=== PATIENT | male | born 1950 | race African-American/Black ===

== ENCOUNTER → 2022-04-30 09:48 | Outpatient (BNVA) | payer OTHER, SELFPAY | PROVIDERS: PCP Internal Medicine; Visit Provider Urology | DX: N40.1 Benign prostatic hyperplasia with lower urinary tract symptoms (principal); Z79.899 Other long term (current) drug therapy | CPT/HCPCS: 99202 ==

== ENCOUNTER 2023-05-06 10:48 | Outpatient (REF) | payer OTHER, SELFPAY ==
[2023-05-06 12:13] LABS: PSA,Total (Free>4and<10) 3.65 ng/mL (0.00-4.00)
== END 2023-05-06 10:49 | disposition home or self-care (01) ==
LOC: HO.LAB 10:48
PROVIDERS: PCP Internal Medicine; Visit Provider Urology
DX: N40.1 Benign prostatic hyperplasia with lower urinary tract symptoms (principal); Z12.5 Encounter for screening for malignant neoplasm of prostate
CPT/HCPCS: 36415; 84153

== ENCOUNTER 2023-10-08 14:04 | Outpatient (AMB) | payer OTHER, SELFPAY ==
--- NOTE | 2023-10-08 14:07 | A.OFFVIS_ITS ---
Intake Intake Visit Reasons: PSA Follow Up(set) Intake Note: Patient presents today for a follow-up on: PSA Meds- Finasteride, Terazosin Allergies to Antibiotic- No Known Allergies Blood Thinner- Warfarin Post Void Residual: 15 Ct Manager Required: No Accompanied by: Self / Same As Patient Allergies No Known Allergies Allergy (Verified 10/08/23 14:19) HPI HPI Comments History of Present Illness Details Fer is a very pleasant [place] male. He is a patient of Dr. Del Rosario. He is seen for the following urologic conditions - lower urinary tract symptoms PVR 15 cc PSA control Known large prostate Repeat PSA in 6 months Continue current medications Lower urinary tract symptoms Longstanding treatment Current medications include finasteride and terazosin PSA 07/05 6.4, 05/07 3.6 Prior prostate biopsy 2017 NAD Investigations - 11/03 MRI reported as 2 lesions PI-RADS 4 each less than 10 mm. Total size 160 cc Will continue with current medications and repeat PSA on interval basis Given prostate size PSA is within an acceptable range [facility] Medical History (Updated 10/08/23 @ 14:25 by Wesley Viramontes MD) Benign prostatic hyperplasia with lower urinary tract symptoms Elevated PSA Frequent urination Review of Systems Const Denies chills and Denies fever(s) Card Reports no additional complaints and Denies syncope Resp Denies cough GI Denies abdominal pain and Denies heartburn Reports as per HPI and Denies change in libido Neuro Denies syncope Psych Denies change in libido Endo Denies change in libido Physical Exam Const General: cooperative, healthy appearing, comfortable and no acute distress Orientation/consciousness: patient oriented x3 HEENT Face and sinus: Yes normal facial exam Mouth: moist mucous membranes Neck Neck: Yes normal visual inspection, Yes full ROM and Yes trachea midline Chest Chest palpation & inspection: normal inspection of the chest Resp Effort & Inspection: normal respiratory effort, able to speak in complete sentences and no respiratory distress GI Inspection: Yes normal to inspection Back/Spine/Pelvis Cervical Spine: normal cervical lordosis Thoracic/Lumbar Spine: thoracic and lumbar spine normal to inspection Skin General skin exam: no rashes or lesions noted Neuro General: patient oriented x3, gait normal, tone normal and moves all extremities Extrem General: Yes normal to inspection and Yes capillary refill normal Office Procedures Post Void Residual Post Residual Void Post Void Residual (PVR): 15 [id number] Void Residual by ultrasound Assessment & Plan Assessment & Plan (1) Elevated PSA: Code(s): R97.20 - Elevated prostate specific antigen [PSA] (2) Benign prostatic hyperplasia with lower urinary tract symptoms: Code(s): N40.1 - Benign prostatic hyperplasia with lower urinary tract symptoms Plan Six month follow-up PSA Orders: Orders PSA,Total (Free>4and<10) 6 Months R97.20 - Elevated prostate specific antigen [PSA] AMB Post Void Residual by ultrasound Today N40.1 - Benign prostatic hyperplasia with lower urinary tract symptoms, R33.9 - Retention of urine, unspecified Patient Instructions: Imaging studies, laboratory and physical exam results were discussed and reviewed in detail. No major barriers to patient understanding were identified. An opportunity to ask questions regarding the treatment plan was provided. All questions were answered. The patient expressed understanding and agreement with the above treatment plan. The patient is aware they should contact our office by phone for worsening of their current condition or the appearance of new urologic symptoms. Compliance is encouraged with any medications and followup testing that is ordered. It is a privilege to participate in the urologic care of your patient. If you have any questions or concerns regarding treatment for the above conditions, or other urologic issues, please do not hesitate to contact me. The office telephone contact is [phone]. This note is constructed using voice recognition software. While every effort has been made to ensure accuracy truck rental manager errors may have been included. Yours sincerely, Dr Wesley Viramontes MD, [facility] - Urology Providers of Expert, Compassionate Care for the Genitourinary System Coding Level of Care Code Est Pt Level 4 (04490) Diagnoses Elevated PSA R97.20 Benign prostatic hyperplasia with lower urinary tract symptoms N40.1 CPT Codes Post Residual Void - PVR CPT Code: 16598-Obut Void Residual by ultrasound ([id number])
== END 2023-10-08 14:26 | disposition home or self-care (01) ==
PROVIDERS: PCP Internal Medicine; Visit Provider Urology
DX: R97.20 Elevated prostate specific antigen [PSA] (principal); N40.1 Benign prostatic hyperplasia with lower urinary tract symptoms
CPT/HCPCS: 99213

== ENCOUNTER → 2023-10-08 14:04 | Outpatient (BNVA) | payer OTHER, SELFPAY | PROVIDERS: PCP Internal Medicine; Visit Provider Urology | DX: R97.20 Elevated prostate specific antigen [PSA] (principal); N40.1 Benign prostatic hyperplasia with lower urinary tract symptoms; Z79.01 Long term (current) use of anticoagulants | CPT/HCPCS: 51798; 99212 ==

== ENCOUNTER 2024-04-07 14:36 | Outpatient (AMB) | payer OTHER, SELFPAY ==
--- NOTE | 2024-04-07 14:40 | MHC.OFFVIS ---
Intake Visit Reasons: 6m/PSA/PVR(set) Intake Note: Patient presents today for 6m follow-up/PSA/PVR Meds- Finasteride, Terazosin Allergies to Antibiotic- No Known Allergies Blood Thinner- Warfarin Post Void Residual: 15ML'S TODAY'S PVR:0ML'S Manufacturing Assistant Required: No Accompanied by: Self / Same As Patient Allergies No Known Allergies Allergy (Verified 04/07/24 14:41) HPI Comments Details: Fer is a very pleasant [place] male. He is a patient of Dr. Del Rosario. He is seen for the following urologic conditions - lower urinary tract symptoms PVR 15 cc Remains on finasteride and terazosin. PSA 4.9 Lower urinary tract symptoms Longstanding treatment Current medications include finasteride and terazosin PSA 07/05 6.4, 05/07 3.6, 04/07 4.9 25% Prior prostate biopsy 2017 [facility] Investigations - 11/03 MRI reported as 2 lesions PI-RADS 4 each less than 10 mm. Total size 160 cc Will continue with current medications and repeat PSA on interval basis Given prostate size PSA is within an acceptable range [facility] Medical History (Updated 10/08/23 @ 14:25 by Wesley Viramontes MD) Benign prostatic hyperplasia with lower urinary tract symptoms Elevated PSA Frequent urination Review of Systems Const Denies chills and Denies fever(s) Card Reports no additional complaints and Denies syncope Resp Denies cough GI Denies abdominal pain and Denies heartburn Reports as per HPI and Denies change in libido Neuro Denies syncope Psych Denies change in libido Endo Denies change in libido Physical Exam Const General: cooperative, healthy appearing, comfortable and no acute distress Orientation/consciousness: patient oriented x3 HEENT Face and sinus: Yes normal facial exam Mouth: moist mucous membranes Neck Neck: Yes normal visual inspection, Yes full ROM and Yes trachea midline Chest Chest palpation & inspection: normal inspection of the chest Resp Effort & Inspection: normal respiratory effort, able to speak in complete sentences and no respiratory distress GI Inspection: Yes normal to inspection Back/Spine/Pelvis Cervical Spine: normal cervical lordosis Thoracic/Lumbar Spine: thoracic and lumbar spine normal to inspection Skin General skin exam: no rashes or lesions noted Neuro General: patient oriented x3, gait normal, tone normal and moves all extremities Extrem General: Yes normal to inspection and Yes capillary refill normal Office Procedures Post Void Residual Post Residual Void Post Void Residual (PVR): 0 [id number]-[id number] Void Residual by ultrasound Results AMB Urinalysis, Automated UA Leukoctes 0 Debbie/uL Last Edit by TOREY Ortega on 04/07/24 14:59 UA Nitrite Negative Last Edit by TOREY Orteag on 04/07/24 14:59 UA Urobilinogen 0.2 mg/dL Last Edit by TOREY Ortega on 04/07/24 14:59 UA Protein 15 mg/dL Last Edit by Alan Morin CCM on 04/07/24 14:59 UA pH 6.0 Last Edit by Alan Morin [facility] on 04/07/24 14:59 UA Blood 0 Roberto/uL Last Edit by TOREY Ortega on 04/07/24 14:59 UA Specific Deale 1.020 Last Edit by TOREY Ortega on 04/07/24 14:59 UA Ketone Negative Last Edit by TOREY Ortega on 04/07/24 14:59 UA Bilirubin 0 mg/dL Last Edit by Alan Morin CCM on 04/07/24 14:59 UA Glucose 250 mg/dL [facility] 04/07/[facility] 14:59 Results Reviewed Results Reviewed: Laboratory Last Values Urine pH (Auto) 6.0 04/07/24 14:59 Specific Deale (Auto) 1.020 04/07/24 14:59 Urine Protein (Auto) 15 mg/dL 04/07/24 14:59 Glucose (UA)(Auto) 250 mg/dL 04/07/24 14:59 Urine Ketones (Auto) Negative 04/07/24 14:59 Urine Blood (Auto) 0 Roberto/uL 04/07/24 14:59 Urine Nitrite (Auto) Negative 04/07/24 14:59 Urine Bilirubin (Auto) 0 mg/dL 04/07/24 14:59 Urine Urobilinogen (Auto) 0.2 mg/dL 04/07/24 14:59 Leukocyte Esterase (Auto) 0 Debbie/uL 04/07/24 14:59 Assessment & Plan Assessment & Plan (1) Elevated PSA: Code(s): R97.20 - Elevated prostate specific antigen [PSA] Category: Medical (2) Benign prostatic hyperplasia with lower urinary tract symptoms: Code(s): N40.1 - Benign prostatic hyperplasia with lower urinary tract symptoms Category: Medical Plan PSA stable Continue 6 month review Orders: Orders AMB Urinalysis Automated 04/07/24 Z13.9 - Encounter for screening, unspecified PSA,Total (Free>4and<10) 6 Months R97.20 - Elevated prostate specific antigen [PSA] Patient Instructions: Imaging studies, laboratory and physical exam results were discussed and reviewed in detail. No major barriers to patient understanding were identified. An opportunity to ask questions regarding the treatment plan was provided. All questions were answered. The patient expressed understanding and agreement with the above treatment plan. The patient is aware they should contact our office by phone for worsening of their current condition or the appearance of new urologic symptoms. Compliance is encouraged with any medications and followup testing that is ordered. It is a privilege to participate in the urologic care of your patient. If you have any questions or concerns regarding treatment for the above conditions, or other urologic issues, please do not hesitate to contact me. The office telephone contact is [phone]. This note is constructed using voice recognition software. While every effort has been made to ensure accuracy senior tech manufacturing engineering errors may have been included. Yours sincerely, Dr Wesley Viramontes MD, [facility] - Urology Providers of Expert, Compassionate Care for the Genitourinary System Coding Level of Care Code Est Pt Level 3 (88298) Diagnoses Elevated PSA R97.20 Benign prostatic hyperplasia with lower urinary tract symptoms N40.1 CPT Codes Post Residual Void - PVR CPT Code: 33122-Zder Void Residual by ultrasound ([id number])
== END 2024-04-07 15:13 | disposition home or self-care (01) ==
LOC: HO.HUSH 14:36
PROVIDERS: PCP Internal Medicine; Visit Provider Urology
DX: R97.20 Elevated prostate specific antigen [PSA] (principal); N40.1 Benign prostatic hyperplasia with lower urinary tract symptoms
CPT/HCPCS: 99213

== ENCOUNTER → 2024-04-07 14:36 | Outpatient (BNVA) | payer OTHER, SELFPAY | PROVIDERS: PCP Internal Medicine; Visit Provider Urology | DX: N40.1 Benign prostatic hyperplasia with lower urinary tract symptoms (principal); R97.20 Elevated prostate specific antigen [PSA] | CPT/HCPCS: 51798; 81003; 99212 ==

== ENCOUNTER 2024-10-08 13:04 | Outpatient (AMB) | payer MEDICARE, SELFPAY ==
--- NOTE | 2024-10-08 13:04 | A.OFFVIS_ITS ---
Intake Visit Reasons: 6m/PSA(set)Elevated Intake Note: Patient is present for 6M/PSA ELEVATED Urology Medication:TERAZOSIN,FINASTERIDE Antibiotic Allergy:NONE Blood Thinner:NONE Crm Campaign Manager Required: No Allergies No Known Allergies Allergy (Verified 10/08/24 13:05) HPI Comments Details: Fer is a very pleasant [place] male. He is a patient of Dr. Del Rosario. He is seen for the following urologic conditions - lower urinary tract symptoms Telemedicine Evaluation 15 min [facility]ation [facility] Video Remains on finasteride and terazosin. PSA stable Continue to follow every six-month Lower urinary tract symptoms Longstanding treatment Current medications include finasteride and terazosin PSA 07/05 6.4, 05/07 3.6, 04/07 4.9 25%, 10/09 4.7 Prior prostate biopsy 2016 [facility] Investigations - 11/03 MRI reported as 2 lesions PI-RADS 4 each less than 10 mm. Total size 160 cc Will continue with current medications and repeat PSA on interval basis Given prostate size PSA is within an acceptable range [facility] Medical History (Updated 10/08/23 @ 14:25 by Wesley Viramontes MD) Benign prostatic hyperplasia with lower urinary tract symptoms Elevated PSA Frequent urination Review of Systems Const All systems reviewed & are unremarkable except as noted in HPI and below Reports no additional complaints Resp Reports no additional complaints GI Reports no additional complaints Reports as per HPI Musc Reports no additional complaints Physical Exam Telemedicine evaluation Appropriate responses Regular breathing rate and rhythm HEENT Head: Yes normal to inspection Ears: hearing grossly normal bilaterally Eyes General: appearance normal, both eyes and all related structures Neck Neck: Yes normal visual inspection Chest Chest palpation & inspection: normal inspection of the chest Resp Effort & Inspection: normal respiratory effort and able to speak in complete sentences Telehealth Telehealth Telehealth Platform: Dandelion Location of provider rendering services: practice address Location of patient: address on file Patient Identification confirmed using: Name, : Yes Telehealth method: voice only Patient verbally consented to treatment: Yes Patient verbally consented to billing insurance company: Yes Patient informed of any privacy concerns related to visit: Yes Minutes spent on Phone/Video with Pt.: 15 Assessment & Plan Assessment & Plan (1) Elevated PSA: Code(s): R97.20 - Elevated prostate specific antigen [PSA] Category: Medical (2) Benign prostatic hyperplasia with lower urinary tract symptoms: Code(s): N40.1 - Benign prostatic hyperplasia with lower urinary tract symptoms Category: Medical Plan Six-month follow-up PSA Orders: Orders PSA,Total (Free>4and<10) 6 Months R97.20 - Elevated prostate specific antigen [PSA] Patient Instructions: Imaging studies, laboratory and physical exam results were discussed and reviewed in detail. No major barriers to patient understanding were identified. An opportunity to ask questions regarding the treatment plan was provided. All questions were answered. The patient expressed understanding and agreement with the above treatment plan. The patient is aware they should contact our office by phone for worsening of their current condition or the appearance of new urologic symptoms. Compliance is encouraged with any medications and followup testing that is ordered. It is a privilege to participate in the urologic care of your patient. If you have any questions or concerns regarding treatment for the above conditions, or other urologic issues, please do not hesitate to contact me. The office telephone contact is [phone]. This note is constructed using voice recognition software. While every effort has been made to ensure accuracy millinery salesperson errors may have been included. Yours sincerely, Dr Wesley Viramontes MD, [facility] - Urology Providers of Expert, Compassionate Care for the Genitourinary System Coding Level of Care Code Tele Est Pt Level 3 (42438) Diagnoses Elevated PSA R97.20 Benign prostatic hyperplasia with lower urinary tract symptoms N40.1
--- OUTSIDE RECORDS SUMMARY | 2024-10-08 14:52 | XMS_ITS | Continuity of Care Document ---
Author Organization [facility] Address [address] [place] [address]- Care Team Providers Care Animal Assistant Name Role Phone Miguel Ángel SY, Vikram Primary Care Physician Encounter [facility] Date(s): 08/24/24 - 09/23/24 [facility] [address] [place], [place] [address] Encounter Type: Triage Allergies, Adverse Reactions, Alerts Substance Criticality Severity Reaction Reaction Severity Status Jardiance Polyuria Active Immunizations Given and Recorded Vaccine Date Status Refusal Reason influenza virus vaccine, inactivated 06/04/24 Rony rded influenza virus vaccine, inactivated 1 08/22/23 Re corded influenza virus vaccine, inactivated 08/14/22 Give n influenza virus vaccine, inactivated 2 07/12/21 Gi zafar influenza virus vaccine, inactivated 3 07/20/20 Gi zafar influenza virus vaccine, inactivated 4 07/01/19 Re corded influenza virus vaccine, inactivated 5 07/09/18 Re corded influenza virus vaccine, inactivated 6 07/09/18 Re corded influenza virus vaccine, inactivated 7 08/04/17 Gi zafar influenza virus vaccine, inactivated 8 07/15/16 Gi zafar influenza virus vaccine, inactivated 09/04/15 Give n influenza virus vaccine, inactivated 9 08/29/14 Gi zafar influenza virus vaccine, inactivated 10 05/24/13 G iven influenza virus vaccine, inactivated 11 08/18/12 G iven influenza virus vaccine, inactivated 12 11/14/11 G iven influenza virus vaccine, inactivated 11/12/10 G iven influenza virus vaccine, inactivated 08/13/10 G iven influenza virus vaccine, inactivated 07/04/09 Give n zoster vaccine, inactivated 03/24/24 Recorded zoster vaccine, inactivated 05/28/23 Recorded pneumococcal 20-valent conjugate vaccine 15 09/05/23 Given [id number] 12y+ bivalent booster vax 08/14/22 Given SARS-CoV-2 (COVID-19) mRNA BNT-162b2 vac 09/24/21 Recorded SARS-CoV-2 (COVID-19) mRNA BNT-162b2 vac 03/28/21 Recorded SARS-CoV-2 (COVID-19) mRNA BNT-162b2 vac 03/07/21 Recorded tetanus-diphtheria toxoids (Td) 05/09/20 Given tetanus-diphtheria toxoids (Td) 16 07/25/03 Given pneumococcal 23-valent vaccine 17 08/04/17 Given pneumococcal 13-valent vaccine 18 07/15/16 Given Zoster Vaccine Live 11/05/14 Recorded tetanus/diphtheria/pertussis, acel(Tdap) 19 01/24/14 Given Hepatitis B Vaccine (old term) 06/06/11 Given Influenza Virus Vaccine (oldterm) 20 07/05/08 Give n Influenza Virus Vaccine (oldterm) 21 07/20/07 Give n Influenza Virus Vaccine (oldterm) 22 08/14/06 Give n Pneumococcal Poly (PPV23) (oldterm) 07/25/03 Given [facility] 2Result Comment: [id number] given w/out incident 3Result Comment: [id number] given w/out incident 4Result Comment: Given at [facility] [place], [place] 5Result Comment: [07/13/2018] [facility] [address] [facility] 6Result Comment: [07/13/2018] [facility] [address] [facility] 7Result Comment: [08/04/2017] [id number] 8Result Comment: [07/15/2016] pt. tolerated inj. without complications...CO 9Result Comment: [08/29/2014] GIVEN W/O INCIDENT...AD 10Result Comment: [05/24/2013] given w/o incident...AA 11Admin Note: given w/ o incident 12Admin Note: given w/ o incident 13Admin Note: given w/o incident; pt states did not receive inj on 08/13/10. 14Admin Note: MANUFACTURE BIOMEDICAL INFO SHEET GIVEN GIVEN W/O INCIDENT 15Result Comment: [facility]- [id number] 16Admin Note: mass bio 17Result Comment: [08/04/2017] [facility] [id number] 18Result Comment: [07/15/2016] pt. tolerated inj. without complications...CO 19Result Comment: [01/24/2014] GIVEN W/O INCIDENT......AA 20Admin Note: sanofi 21Admin Note: GIVEN BY 22Admin Note: S[employer] PA[employer]UR Medications acetaminophen 650 mg oral tablet, extended release 2 tablet = 1,300 mg, By Mouth, Every 8 hours, PRN Arthritis, # 84 tablet, 1 Refills, Maintenance, 08/19/22 11:02:00 AM EST, ER Tablet, Partial fill upon patient request if the prescription is for a schedule II opioid drug. Start Date: 08/19/22 Stop Date: 09/18/22 Status: Ordered Quantity: 84.0 Unit: tablet Repeat number: 1 [place] KwikPen 100 units/mL subcutaneous solution = 14 units, Subcutaneous Infusion, Daily at bedtime, # 10 mL, 8 Refills, Maintenance, 01/09/24 1:17:00 PM EDT, [facility]/pharmacy #[id number], Partial fill upon patient request if the prescription is for a schedule II opioid drug., 180, cm, 01/06/24 15:26:00 EDT, Height, 98.2, kg, 09/05/23 15:24:00 EST, Dry Weight Start Date: 01/09/24 Stop Date: 10/05/24 Status: Ordered Quantity: 10.0 Unit: mL Repeat number: 9 Claritin 10 mg oral tablet 1 tablet = 10 mg, By Mouth, Daily, # 30 tablet, 0 Refills, Maintenance, 10/01/12 3:51:16 PM EST, Tablet Start Date: 10/01/12 Status: Ordered Quantity: 30.0 Unit: tablet Repeat number: 1 finasteride 5 mg oral tablet 1 tablet = 5 mg, By Mouth, Daily, # 90 tablet, 0 Refills, Maintenance, 08/19/22 10:56:00 AM EST, Tablet, Partial fill upon patient request if the prescription is for a schedule II opioid drug. Start Date: 08/19/22 Status: Ordered Quantity: 90.0 Unit: tablet Repeat number: 1 glipiZIDE 10 mg oral tablet, extended release 1 tablet = 10 mg, By Mouth, 2 times a day, # 180 tablet, 3 Refills, Maintenance, 09/05/23 3:38:00 PM EST, [facility]/pharmacy #[id number], 180, cm, 09/05/23 15:24:00 EST, Height, 98.2, kg, 09/05/23 15:24:00 EST, Dry Weight Start Date: 09/05/23 Stop Date: 08/30/24 Status: Ordered Quantity: 180.0 Unit: tablet Repeat number: 4 hydrochlorothiazide 25 mg oral tablet 1, tablet, By Mouth, Daily, # 90 tablet, Refills 1, Maintenance, 06/16/24 12:00:00 PM EDT, Route to Pharmacy Electronically, [facility] STORE [id number], 180, cm, 05/25/24 15:51:00 EDT, Height, 98.2, kg, 09/05/2315:24:00 EST, Dry Weight Start Date: 06/16/24 Status: Ordered Quantity: 90.0 Unit: tablet Repeat number: 1 losartan 25 mg oral tablet 1 tablet, By Mouth, Daily, # 90 tablet, 4 Refills, Maintenance, 08/24/24 5:15:00 PM EST, [facility]/pharmacy #[id number], Patient needs labs drawn for additional refills., 180, cm, 05/25/24 15:51:00 EDT, Height, 98.2, kg, 09/05/23 15:24:00 EST, Dry Weight Start Date: 08/24/24 Stop Date: 11/17/25 Status: Ordered Quantity: 90.0 Unit: tablet Repeat number: 5 metFORMIN 1000 mg oral tablet 1 tablet = 1,000 mg, By Mouth, 2 times a day, # 180 tablet, 3 Refills, Maintenance, 02/19/24 1:48:00 PM EDT, Tablet, [facility]/pharmacy #[id number], 180, cm, 01/06/24 15:26:00 EDT, Height, 98.2, kg, 09/05/23 15:24:00 EST, Dry Weight Start Date: 02/19/24 Stop Date: 02/13/25 Status: Ordered Quantity: 180.0 Unit: tablet Repeat number: 4 Metoprolol Tartrate 25 mg oral tablet 1 tablet = 25 mg, By Mouth, 2 times a day, for 90 days, # 180 tablet, 3 Refills, Physician Stop 03/27/25 4:38:00 PM EDT, 04/01/24 4:38:00 PM EDT, [facility]/pharmacy #[id number], 180, cm, 02/19/24 14:04:00 EDT, Height, 98.2, kg, 09/05/23 15:24:00 EST, Dry Weight Start Date: 04/01/24 Stop Date: 03/27/25 Status: Ordered Quantity: 180.0 Unit: tablet Repeat number: 4 nitroglycerin 0.4 mg sublingual tablet 1 tablet = 0.4 mg, Sublingual, Every 5 minutes, PRN as needed for chest pain, not to exceed 3 doses/15 min--if pain persists, seek medical attention, # 100 tablet, 3 Refills, Maintenance, 02/19/24 1:52:00 PM EDT, Tablet, [facility]/pharmacy #[id number], Partial fill upon patient request if the prescription is fora schedule II opioid drug., 180, cm, 02/19/24 13:51:00 EDT, Height, 98.2, kg, 09/05/23 15:24:00 EST, Dry Weight Start Date: 02/19/24 Status: Ordered Quantity: 100.0 Unit: tablet Repeat number: 4 omeprazole 40 mg oral enteric coated capsule 1 capsule, By Mouth, 2 times a day, # 180 capsule, 1 Refills, Maintenance, 04/19/24 5:43:00 PM EDT, [facility] STORE [id number], 180, cm, 04/02/24 9:17:00 EDT, Height, 98.2, kg, 09/05/23 15:24:00 EST, Dry Weight Start Date: 04/19/24 Status: Ordered Quantity: 180.0 Unit: capsule Repeat number: 1 One Touch Ultra 2 Glucose Meter See Instructions, # 1 each, Refills 0, Tot. Refills 0, Maintenance, use once daily to check sugars Dx: E11.9, 10/30/23 1:21:00 PM EST, Supply, 180, cm, 09/05/23 16:03:00 EST, Height, 98.2, kg, 09/05/23 15:24:00 EST, Dry Weight Start Date: 10/30/23 Stop Date: 11/29/23 Status: Ordered Quantity: 1.0 Unit: each Repeat number: 1 One Touch Ultra Test Strips See Instructions, # 90 each, Refills 3, Tot. Refills 3, Maintenance, use once daily to check sugarsDx: E11.9, 10/30/23 1:21:00 PM EST, Supply, 180, cm, 09/05/23 16:03:00 EST, Height, 98.2, kg, 09/05/23 15:24:00 EST, Dry Weight Start Date: 10/30/23 Stop Date: 02/27/24 Status: Ordered Quantity: 90.0 Unit: each Repeat number: 4 [place], 31 G x 5 mm BD Ultra Fine III See Instructions, # 50 each, Refills 5, Tot. Refills 5, Maintenance, use to administer 10 units Subcutaneous Injection Daily at bedtime 30 days, 06/08/24 6:37:00 AM EDT, Supply, 180, cm, 05/25/24 15:51:00 EDT, Height, 98.2, kg, 09/05/23 15:24:00 EST, Dry Weight Start Date: 06/08/24 Status: Ordered Quantity: 50.0 Unit: each Repeat number: 6 pravastatin 40 mg oral tablet 1 tablet = 40 mg, By Mouth, Daily at bedtime, # 90 tablet, 3 Refills, Maintenance, 02/19/24 1:49:00 PM EDT, Tablet, [facility]/pharmacy #[id number], 180, cm, 01/06/24 15:26:00 EDT, Height, 98.2, kg, 09/05/23 15:24:00 EST, Dry Weight Start Date: 02/19/24 Stop Date: 02/13/25 Status: Ordered Quantity: 90.0 Unit: tablet Repeat number: 4 terazosin 10 mg oral capsule 10 mg, 1, capsule, By Mouth, Daily at bedtime, # 90 capsule, Refills 4, Tot. Refills 4, Maintenance, 07/10/23 8:48:00 AM EDT, Route to Pharmacy Electronically, [facility]/pharmacy #[id number], Partial fill upon patient request if the prescription is for a schedule II opioid drug., 180, cm, 05/01/23 16:21:00 EDT, Height, 97, kg, 02/26/23 5:02:00 EDT, Dry Weight Start Date: 07/10/23 Stop Date: 10/02/24 Status: Ordered Quantity: 90.0 Unit: capsule Repeat number: 5 tiZANidine 2 mg oral tablet See Instructions, 1 to 2 tablet By Mouth at bedtime for muscle spasm, # 60 tablet, Refills 1, Tot. Refills 1, Maintenance, 09/05/23 5:01:00 PM EST, Instructions Replace Required Details, Route to Pharmacy Electronically, [facility]/pharmacy #[id number], Partial fill upon patient request if the prescription is for a schedule II opioid drug., 180, cm, 09/05/23 16:03:00 EST, Height, 98.2, kg, 09/05/23 15:24:00 EST, Dry Weight Start Date: 09/05/23 Status: Ordered Quantity: 60.0 Unit: tablet Repeat number: 2 Indication: Low back pain, unspecified warfarin 2.5 mg oral tablet 1-3 TABLETS, By Mouth, Daily, INSTR:DEPENDING ON INR LEVEL., # 270 tablet, 12 Refills, Maintenance,06/15/24 7:46:00 AM EDT, [id number], 180, cm, 05/25/24 15:51:00 EDT, Height, 98.2, kg, 09/05/2315:24:00 EST, Dry Weight Start Date: 06/15/24 Status: Ordered Quantity: 270.0 Unit: tablet Repeat number: 1 Problem List Condition Confirmation Course Effective Dates Status Health Status Informant Atrial fibrillation Confirmed 03/23/15 Active BPH with urinary obstruction Confirmed Active Cataract Confirmed Active Colonic polyp Confirmed Active Diastasis recti Confirmed Active Diverticulosis Confirmed Active Dry eye syndrome Confirmed Active Dyslipidemia Confirmed 09/24/10 Active Epigastric hernia Confirmed Active Familial benign neutropenia Confirmed Active Family history: Diabetes mellitus (mom) Confirmed Active GERD (gastroesophageal reflux disease) Confirmed Active Glaucoma Confirmed Active Hypertension Confirmed Active Lactose intolerance Confirmed Active Lumbar spondylosis Confirmed Active Mixed sleep apnea Confirmed 08/22/23 Active Type 2 diabetes mellitus with diabetic neuropathy Confirmed Active Obese class I Confirmed Active Obesity Confirmed Active Obstructive sleep apnea Confirmed Active 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 Confirmed 10/06/17 Active Traumatic rupture of rotator cuff Confirmed 01/20/23 Active Diabetes mellitus type II, uncontrolled Confirmed 11/26/09 Active Social History Social History Type Response Smoking Status Never smoker; Tobacc o user in household: No entered on: 09/27/13 Sex Sex Representation Male (finding) Patient Care team information Care Team Personnel Name: Fela Trinidad NP Position: [facility] PCO Associate Professional Member Role: [employer] Consulting Provider Name: Vikram Del Rosario MD Position: [facility] Physician - Primary Care Member Role: PCP Address: [address] [place] [address] [facility] [address] Telecom: Care Team Related Persons Name: HUNG ANDRADE Name: DARLINE ANDRADE Insurance Providers Guarantor name: [id number] Plan Information #: 1 Payer: HMO [employer] Member Number: NA Policy Number: NA Group Number: NA
--- OUTSIDE RECORDS SUMMARY | 2024-10-08 14:52 | XMS_ITS ---
Author Name [facility] Organization Unknown History of Medication Use Medication Directions Dispensed Refills Start Date End Date Stat us nitroglycerin 0.4 mg sublingual tablet PLEASE SEE ATTACHED FOR DETAILED DIRECTIONS active latanoprost 0.005 % eye drops active losartan 25 mg tablet TAKE 1 TABLET BY MOUTH EVERY DAY active glipizide ER 10 mg tablet, extended release 24 hr TAKE 1 TABLET BY MOUTH TWICE A DAY active Kaymu2 Meter USE TO TEST DAILY 04/15/2023 active metoprolol tartrate 25 mg tablet active Trulicity 0.75 mg/0.5 mL subcutaneous pen injector INJECT 1 PEN SUBCUTANEOUSLY EVERY WEEK, FOR 28 DAYS, ROTATE INJECTION SITES active Problems Problem Status Onset Date Problem Type Date of Resoluti on Source Pain of right shoulder joint active 2023-06-01 ProblemAct [facility] Traumatic rupture of rotator cuff active 2023-01-20 ProblemAct [facility] Tear of right rotator cuff active 2023-04-29 ProblemAct [facility] Full thickness rotator cuff tear active 2023-03-04 ProblemAct [facility]
--- OUTSIDE RECORDS SUMMARY | 2024-10-08 14:52 | XMS_ITS | Data Portability ---
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 Denney has symptoms consistent with a rotator cuff tear in the right shoulder. He has a positive drop arm test and abnormal scapulothoracic rhythm. He has minimal pain at this time. We discussed rotator cuff injury in detail. The patient's history and physical exam are consistent with right rotator cuff tear. The nature of the condition and treatment options were discussed with the patient. We discussed that tears of the rotator cuff do not heal and may progress over time. With that being said, not all rotator cuff tears are symptomatic. We talked at length about treatment options including observation and activity modification, home exercise program/physical therapy, injection therapy, medication therapy and surgical intervention. He is not interested in any surgical options. He will try physical therapy. Pain is currently controlled fairly well but a corticosteroid injection could be considered if it worsens. Realistic expectations were emphasized. [email or web address] Not available 01/20/2023 13:46:02 03/04/2023 03/04/2023 I reviewed his history and physical exam and x-rays and is my impression that he most likely does have a rotator cuff tear but fortunately he is improving and has he is not that interested in surgery he should continue with the physical therapy to work on improving his range of motion and strength. If of course his symptoms worsen then he may be a good candidate for a injection or even surgical intervention but I do not think either of those 2 are indicated at this time. We will see him back in 6 weeks time The patient's history and physical exam are consistent with right rotator cuff tear. The nature of the condition and treatment options were discussed with the patient. We discussed that tears of the rotator cuff do not heal and may progress over time. With that being said, not all rotator cuff tears are symptomatic. We talked at length about treatment options including observation and activity modification, home exercise program/physical therapy, injection therapy, medication therapy and surgical intervention. [email or web address] Not available 03/04/2023 13:25:53 04/15/2023 04/15/2023 I have reviewed his history and exam and x-rays and clearly has a rotator cuff tear he is improving somewhat with physical therapy which is fortunate but at the same time he still has significant pain and weakness in order to further evaluate this as he is now considering surgery regarding go ahead and order an MRI scan to further evaluate the rotator cuff The patient's history and physical exam are consistent with right rotator cuff tear. The nature of the condition and treatment options were discussed with the patient. We discussed that tears of the rotator cuff do not heal and may progress over time. With that being said, not all rotator cuff tears are symptomatic. We talked at length about treatment options including observation and activity modification, home exercise program/physical therapy, injection therapy, medication therapy and surgical intervention. dami Not available 04/15/2023 13:33:45 04/29/2023 04/29/2023 I have reviewed his history and physical exam and MRI and is my impression he has a right shoulder massive rotator cuff tear. We talked in detail about the treatment options especially given his age and the size of the tear and the fact that he is getting better so certainly conservative treatment would be a reasonable option however he would like to at least discuss with the surgeon the possibility of what the surgery would be and how long it would take to recover . He lives in [place] so I will have him see Dr. Guthrie but if it is thought that a reverse shoulderreplacement may be a better option we can refer him to Dr. Te [email or web address] Not available 04/29/2023 14:07:29 06/02/2023 06/02/2023 He has a large superior rotator cuff tear (retraction medial to the mid humeral line, not quite to the glenoid) along with tendinosis of the infraspinatus. He has some tearing of the upper subscapularis. His symptoms have modified a great deal. He has very little nighttime pain. He has restored reasonable arc of motion. He feels functional. At this point I would not advise anything surgical. As he is not having much in the way of pain we will defer a cortisone injection, something he can consider in the future if his pain increases. He does live alone. He does not think he would be able to consider the possibility of surgery anyway. He is going to discontinue physical therapy and wean to a home exercise program. Questions invited and answered at length. Greater than 20 minutes was spent with the encounter today, including face to face time with the patient, documentation, review of records/imaging if applicable, and coordination of care. PRIOR JK: I have reviewed his history and physical exam and MRI and is my impression he has a right shoulder massive rotator cuff tear. We talked in detail about the treatment options especially given his age and the size of the tear and the fact that he is getting better so certainly conservative treatment would be a reasonable option however he would like to at least discuss with the surgeon the possibility of what the surgery would be and how long it would take to recover . He lives in [place] so I will have him see Dr. Guthrie but if it is thought that a reverse shoulder replacement may be a better option we can refer him to Dr. Tiwari. PRIOR JK: I have reviewed his history and exam and x-rays and clearly has a rotator cuff tear he is improving somewhat with physical therapy which is fortunate but at the same time he still has significant pain and weakness in order to further evaluate this as he is now considering surgery regarding go ahead and order an MRI scan to further evaluate the rotator cuff PRIOR JK : I reviewed his history and physical exam and x-rays and is my impression that he most likely does have a rotator cuff tear but fortunately he is improving and has he is not that interested in surgery he should continue with the physical therapy to work on improving his range of motion and strength. If of course his symptoms worsen then he may be a good candidate for a injection or even surgical intervention but I do not think either of those 2 are indicated at this time. We will see him back in 6 weeks time. The patient's history and physical exam are consistent with right rotator cuff tear. The nature of the condition and treatment options were discussed with the patient. We discussed that tears of the rotator cuff do not heal and may progress over time. With that being said, not all rotator cuff tears are symptomatic. We talked at length about treatment options including observation and activity modification, home exercise program/physical therapy, injection therapy, medication therapy and surgical intervention. PRIOR BRENDA 01/20/23 : Mr. Denney has symptoms consistent with a rotator cuff tear in the right shoulder. He has a positive drop arm test and abnormal scapulothoracic rhythm. He has minimal pain at this time. We discussed rotator cuff injury in detail. The patient's history and physical exam are consistent with right rotator cuff tear. The nature of the condition and treatment options were discussed with the patient. We discussed that tears of the rotator cuff do not heal and may progress over time. With that being said, not all rotator cuff tears are symptomatic. We talked at length about treatment options including observation and activity modification, home exercise program/physical therapy, injection therapy, medication therapy and surgical intervention. He is not interested in any surgical options. He will try physical therapy. Pain is currently controlled fairly well but a corticosteroid injection could be considered if it worsens. Realistic expectations were emphasized. [email or web address] Not available 06/02/2023 13:19:19 Plan of Treatment Reminders Order Date Submit Date Provider Last Modified By Organization Details Last Modified Time Details Appointments None recorded. Lab None recorded. Referral physical therapist referral - Known rotator cuff tear. Progress if possible with strength. Poor surgical candidate.F requency: 2 visits per week for 6 weeksTherap y: Evaluate and TreatModali ties:As neededPreca utions - if any:Goals: ROM, HEP, Decrease Pain, Increase Strength and Increase Endurance. Scapular and shoulder stabilizati on 2022 023 [email or web address] Not available 3 08:58:42 Procedures None recorded. Surgeries None recorded. Imaging XR, shoulder, 2 or more view 2022 023 [email or web address] [facility], [address], [place], [address], 3 16:06:19 MRI, shoulder, w/o contrast - r/o rotator cuff tearPleas e call patient to schedule and hand carry CD 2022 023 [email or web address] [facility], [address] [place], [address], 3 14:48:06 Medication Orders None recorded. Patient TargetsNo targets recorded. Patient Instructions Encounter Date Encounter Id Patient Instructions Last Modified By Organization Details Last Modified Time 01/20/2023 [id number] Views of the {{Right* Left Bila teral}} shoulder were obtained in the {{[facility]* Zafar} } office including AP, Grashey and outlet views. Normal bone mineralization. Moderate degenerative changes in the AC joint, mild in the glenohumeral joint.No abnormal calcifications in the lateral shoulder. No evidence of acute injury or fracture. Interpretation by: Raad Lopez PA-C [email or web address] Not available 01/20/2023 13:44:55 Reason for Referral Physical Therapist Referral for Traumatic rupture of rotator cuff Known rotator cuff tear. Progress if possible with strength. Poor surgical candidate.Frequency: 2 visits per week for 6 weeksTherapy: Evaluate and TreatModalities:As neededPrecautions - if any:Goals: ROM, HEP, Decrease Pain, Increase Strength and Increase Endurance. Scapular and shoulder stabilization Referring Physician: Raad Lopez, Orthopedic Surgery, Encounter Date: 01/20/2023 Results Created Date Observation Date Name Description Value Unit Range Abnormal Flag Note LastModifiedBy Organization Detail LastModifiedTime 04/22/2004/21/2023 MRI, shoul mg, w/o contr ast No observ ation record ed. [email or web address] [facility] Dept [address] [place], [address], 04/25/2023 09:13:03 Result Notes None recorded. Problems Name Problem SNOMED Code Status Onset Date Resolution Date Notes Provider Name and Address Organization Details Recorded Time Full thickness rotator cuff tear 139602015 Active 2022 Kenneth Gerardo MD [address], [place], [address], [place] [facility] 3 13:26:09 Rupture of rotator cuff of right shoulder 29379080638080 103 Active 2022 Kenneth Gerardo MD [address], [place], [address], [place] [facility] 3 14:07:27 Pain of right shoulder joint 84446474831244 100 Active 2022 ANA M HAYS PA-C [address], [place], [address], [place] [facility] 3 19:59:52 Traumatic rupture of rotator cuff 513626342 Active 2022 RAAD LOPEZ PA-C [address], [place], [address], [place] [facility] 3 13:47:49 Problem Notes None recorded. Procedures Surgical History None recorded. Imaging Results Imaging Date Name Status LastModified by Organiz ation Details LastModified Time 04/21/2023 MRI, shoulder, w/o contrast completed [email or web address] [facility] [address] [place] [address], [place], [address], 04/25/2023 09:13:03 Procedure Notes None recorded. Medical Equipment None Reported. Medications Name Sig Start Date Stop Date Status Note LastModified by Organization Details LastModified Time latanoprost 0.005 % eye drops ONE DROP INTO EACH EYE AT BEDTIME active Not Available Not Available No t Available pravastatin 40 mg tablet TAKE 1 TABLET BY MOUTH EVERYDAY AT BEDTIME active Not Available Not Available No t Available glipizide ER 10 mg tablet, extended release 24 hr TAKE 1 TABLET BY MOUTH TWICE A DAY active Not Available Not Available No t Available warfarin 2.5 mg tablet TAKE 1-3 TABLETS BY MOUTH DAILY DEPENDING ON INR LEVEL active Not Available Not Available No t Available omeprazole 40 mg capsule,del ayed release TAKE 1 CAPSULE BY MOUTH TWICE A DAY active Not Available Not Available No t Available Let's TalkTo[employer] Ultra Test strips TEST 1 TIME DAILY OR DIRECTED BY PHYSICIAN . DX: E11.40 active Not Available Not Available No t Available metformin 1,000 mg tablet TAKE 1 TABLET BY MOUTH TWICE A DAY active Not Available Not Available No t Available losartan 25 mg tablet TAKE 1 TABLET BY MOUTH EVERY DAY active Not Available Not Available No t Available nitroglycer in 0.4 mg sublingual tablet PLEASE SEE ATTACHED FOR DETAILED DIRECTION S active Not Available Not Available No t Available omeprazole 20 mg capsule,del ayed release active Not Available Not Available Not Available terazosin 10 mg capsule TAKE 1 CAPSULE BY MOUTH AT BEDTIME active Not Available Not Available No t Available finasteride 5 mg tablet TAKE 1 TABLET BY MOUTH EVERY DAY active Not Available Not Available No t Available metoprolol tartrate 25 mg tablet TAKE 1 TABLET BY MOUTH TWICE A DAY active Not Available Not Available No t Available OneTouch UltraSoft Lancets TEST 1 TIME DAILY OR DIRECTED BY ROSETTA DX: E11.40 active Not Available Not Available No t Available BD Ultra-Fine Mini Pen Needle 31 gauge x 3/16 USE TO ADMINISTE R 10 UNITS SUBCUTANE OUS INJECTION DAILY AT BEDTIME 30 DAYS 04/15 completed Not Available Not Available Not Available Lantus Solostar U-100 Insulin 100 unit/mL (3 mL) subcutaneou s pen INECT 10 UNITS SUBCUTANE OUSLY DAILY AT BEDTIME active Not Available Not Available No t Available Trulicity 0.75 mg/0.5 mL subcutaneou s pen injector INJECT 1 PEN SUBCUTANE OUSLY EVERY WEEK, FOR 28 DAYS, ROTATE INJECTION SITES active Not Available Not Available No t Available OneTouch Ultra2 Meter USE TO TEST DAILY active Not Available Not Available No t Available Vitals Date Recorded Body height Body mass index (BMI) Body weight Provider Name and Address Organization Details Last Updated DateTime 01/20/2023 177.8 cm 30.6 kg/m2 05217.17 g Anne Cameron [place] [facility] 01/20/2023 13:09:40 Date Recorded Body height Provider Name an d Address Organization Details Last Updated DateTime 03/04/2023 177.8 cm Miley Argentina [place] [facility] 03/04/2023 13:02:34 Date Recorded Body height Body mass index (BMI) Body weight Provider Name and Address Organization Details Last Updated DateTime 04/15/2023 177.8 cm 30.6 kg/m2 58048.17 g Anne Cameron [facility] 04/15/2023 13:00:06 Date Recorded Body height Provider Name an d Address Organization Details Last Updated DateTime 04/29/2023 177.8 cm Miley Elaine [facility] 04/29/2023 13:57:34 Date Recorded Body height Provider Name an d Address Organization Details Last Updated DateTime 06/02/2023 177.8 cm Miley Elaine [facility] 06/02/2023 12:57:40 Social History Question Answer Notes LastModified by Organizat ion Details LastModified Time Tobacco Smoking Status Never Smoker Anne Cameron [facility] 01/20/2023 13:09:51 What Is Your Level Of Alcohol Consumption? None [email or web address] Information not available 01/20/2023 Do You Use Any Illicit Or Recreational Drugs? No [email or web address] Information not available 01/20/2023 Do You Or Have You Ever Used Any Other Forms Of Tobacco Or Nicotine? No [email or web address] Information not available 01/20/2023 Sex: Unknown Functional Status None recorded. Mental Status None recorded. Family History Relationship Description Onset Age of this Age Resolved Age Notes LastModified by Organization Details LastModified Time Mother Arthritis [email or web address] Not availabl e 01/20/2023 13:09:59 Mother Diabetes mellitus [email or web address] Not available 2022 13:10:04 Medical History No medical history recorded. Past Encounters Encounter ID Performer Location Encounter Start Date Encounter Closed Date Diagnosis/Indication Diagnosis SNOMED-CT Code Diagnosis ICD10 Code Diagnosis Note [id number] MD MATTEO Charlton [address] [address] 01/20/2023 12:27:13 01/20/2023 13:40:06 Pain of right shoulder joint 8493124392 0118329 M25.511 Traumatic rupture of rotator cuff 486721006 S46.091A [id number] MD MATTEO Charlton [address] [address] 03/04/2023 12:57:13 03/04/2023 13:35:44 Full thickness rotator cuff tear 569082201 M75.121 [id number] MD MATTEO Charlton [place] [address] [address] 04/15/2023 12:52:01 04/15/2023 13:15:00 Rupture of rotator cuff of right shoulder 5217707640 4471116 M75.101 [id number] MD MATTEO Charlton [address] [address] 04/29/2023 13:54:49 04/29/2023 14:05:12 Rupture of rotator cuff of right shoulder 9008102676 8184076 M75.101 [id number] MD MATTEO Spencer [place] [address] [address] 06/02/2023 12:54:35 06/02/2023 13:17:40 Pain of right shoulder joint 2859720656 4563575 M25.511 Traumatic rupture of rotator cuff 583039092 S46.091A Full thick ness rotator cuff tear 895651968 M75.121 Health Concerns Section Related Observation LastModified by Organization Detai ls LastModified Time None Recorded Concern Status LastModified by Organization Details LastModified Time None Recorded Advance Directives Directive None Recorded Payers Encounter Date Sequence Insurance Name Policy Number Policy Hui Covered Member ID Hui Member ID Guarantor Name 01/20/2023 1 [employer] (MEDICARE REPLACEMENT/ ADVANTAGE - PPO) Fer Denney [id number] Fer Denney 03/04/2023 1 [employer] (MEDICARE REPLACEMENT/ ADVANTAGE - PPO) Fer Denney [id number] Fer Denney 04/15/2023 1 [employer] (MEDICARE REPLACEMENT/ ADVANTAGE - PPO) Fer Denney [id number] Fer Denney 04/29/2023 1 [employer] (MEDICARE REPLACEMENT/ ADVANTAGE - PPO) Fer Denney [id number] Fer Denney 06/02/2023 1 [employer] (MEDICARE REPLACEMENT/ ADVANTAGE - PPO) Fer Denney [id number] Fer Denney Notes Date Note Type Note Provider Name and Address Organization Details Recorded Time 01/20/2023 text/html Patient is a pleasant 72-year-old male who presents today with right shoulder weakness. He fell on November 14, 2022. He landed forward and braced himself with his arms. He had pain in his right shoulder and knee. His knee pain got better, but has had continued weakness in his right arm. He did have pain for a while, but it is since decreased. He was hoping symptoms would improve but they have persisted. No prior injury or trauma to the shoulder. He is diabetic with an A1c in the sevens. He has hypertension. RAAD LOPEZ PA-C [address], [place], [address], [place] [facility] 01/20/2023 13:48:27 03/04/2023 text/html fer returns for follow-up of his right shoulder he was seen by Storm 6 weeks ago with a history and physical exam consistent with a possible right shoulder rotator cuff tear. At the time he could not raise his arm up much at all but he went to physical therapy and he is feeling much better he still complains of some weakness but much better he can now raise his arm up overhead Kenneth Gerardo MD [address], [place], [address], [place] [facility] 03/04/2023 13:26:28 04/15/2023 text/html Fer returns for follow-up of his right shoulder he is still having pain in his shoulder but he can now raise it up with some difficulty Kenneth Gerardo MD [address], [place], [address], [place] [facility] 04/15/2023 13:34:01 04/29/2023 text/html Mr Denney retur ns for follow-up of his right shoulder. He has been in physical therapy and he is feeling better he can now raise his arm up but he still has pain in his shoulder and still feels weak to him Kenneth Gerardo MD [address], [place], [address], [place] [facility] 04/29/2023 14:07:41 06/02/2023 text/html 73-year-old gentleman presents today for an evaluation of his right shoulder. He feels he has made good improvements with physical therapy, but is unhappy with the copayments. He feels ready to go to a home exercise program. He denies much in the way of nighttime pain. He has some discomfort in the shoulder which seems to be correlated with inclement weather. He is reasonably functional. He lives alone. PRIOR JK:Mr Denney returns for follow-up of his right shoulder. He has been in physical therapy and he is feeling better he can now raise his arm up but he still has pain in his shoulder and still feels weak to him PRIOR JK:Fer returns for follow-up of his right shoulder he is still having pain in his shoulder but he can now raise it up with some difficulty PRIOR JK:Fer returns for follow-up of his right shoulder he was seen by Storm 6 weeks ago with a history and physical exam consistent with a possible right shoulder rotator cuff tear. At the time he could not raise his arm up much at all but he went to physical therapy and he is feeling much better he still complains of some weakness but much better he can now raise his arm up overhead PRIOR BRENDA 01/20/23:Patient is a pleasant 72-year-old male who presents today with right shoulder weakness. He fell on November 14, 2022. He landed forward and braced himself with his arms. He had pain in his right shoulder and knee. His knee pain got better, but has had continued weakness in his right arm. He did have pain for a while, but it is since decreased. He was hoping symptoms would improve but they have persisted.No prior injury or trauma to the shoulder. He is diabetic with an A1c in the sevens. He has hypertension. Franky Guthrie MD [address], [place], [address], [place] [facility] 06/02/2023 13:20:54
--- OUTSIDE RECORDS SUMMARY | 2024-10-08 14:53 | XMS_ITS ---
Author Organization [facility] Address [address] [place] [address] Care Team Providers Care Material Expediter Name Role Phone Miguel Ángel SY, Vikram Primary Care Provider Rik lee Irina Vyas Unavailable [phone] Rosemary Brito Unavailable [phone] REASON FOR VISIT Seen sooner Encounters Encounter Location Date Provider Diagnosis [address] [address] 09/27/2024 Rosemary Brito Plan Of Treatment Next Appt Details Provider Name:Irina Vyas , 10/15/2024 01:45:00 PM, [address] [place] [address], [phone], Progress Notes * Gee DENNEYnarinderDOB: [birth year] (74 yo M)Acc No.[id number]:09/27/2024 Progress Notes Patient:?Puma DENNEY Provider:?Rosemary Brito DPM :1950???Age:74 Y???Sex:Male Mike e:09/27/2024 Address:[facility] [address] [place], [place]-[address] Pcp:Vikram Del Rosario MD Subjective: * Chief Complaints: * ???1. Seen sooner. * Medical History:? Objective: * Vitals:? Assessment: Plan: * Treatment: * Images: * The named appointment provid er may or may not be the originator of this progress note, and it is not deemed complete until electronically signed by the appointment provider. Sign off status: Pending * Provider:?Rosemary Brito DPM Date:? Generated for Laurie jacques/Evgeny/Napoleon on:?10/08/2024 02:52 PM EST
--- OUTSIDE RECORDS SUMMARY | 2024-10-08 14:53 | XMS_ITS | Patient Health Record ---
Author Organization [facility] Address [address] [place] [address] Care Team Providers Care Clinical Research Tech Name Role Phone Vikram Del Rosario MD Primary Care Provider Irina Cunningham Unavailable [phone] Rosemary Brito Unavailable [phone] Allergies No Known Allergies Reason For Referral No Information Medications Medication SIG (Take, Route, Frequency, Duration) Notes Start Date End Date Status Ammonium Lactate 12 % 1 application Exte rnally to affected areas of dry skin to feet except for between the toes Twice a day for 30 days Active Omeprazole 40 MG 1 capsule 1/2 to 1 h our before morning meal Orally Once a day Active metFORMIN HCl 1000 MG 1 tablet with a me al Orally Once a day Active glipiZIDE 10 MG 1 tablet 30 minutes before breakfast Orally Once a day Active Nitroglycerin 0.4 MG as directed Sublingual Active hydroCHLOROthiazide 25 MG 1 tablet in th e morning Orally Once a day Active Losartan Potassium 50 MG 1 tablet Orally Once a day Active Warfarin Sodium 2.5 MG 1 tablet Orally O nce a day Active Metoprolol Succinate 25 MG 1 capsule Ora lly Once a day Active Social History Tobacco Use: Social History Observation Description Date Details (start date - stop date) Never Smoker NA - NA Tobacco use other than smoking: Question Answer Notes Are you an other tobacco user? No Tobacco Control (Standard) Question Answer Notes Tobacco use: Nonsmoker Additional Findings: Tobacco non-user Current no nsmoker AUDIT-C (Standard) Question Answer Notes Did you have a drink contain ing alcohol in the past year? Yes How often did you have six o r more drinks on one occasion in the past year? Less than monthly (1 point) How many drinks did you have on a typical day when you were drinking in the past year? 1 or 2 drinks (0 point) How often did you have a dri nk containing alcohol in the past year? Monthly or less (1 point) Points 2 Interpretation Negative Problems Problem Type SNOMED Code ICD Code Onset Dates Problem Status W/U Status Risk Notes Problem Polyneuropathy due to type 2 diabetes mellitus (574915339) Type 2 diabetes mellitus with diabetic polyneuropathy (E11.42) Active confirmed Vital Signs Height 5 ft 11 in in 07/28/2024 Weight 214 lbs 07/28/2024 BMI 29.84 kg/m2 07/28/2024 Procedures Procedure Date Ordered Date Performed Result Body Sit e 78588-VCRWJEB NAIL, 6 OR MORE 07/28/2024 N/A 61263-KKIZ SKIN LESIONS, OVER 4 07/28/2024 N/A Encounters Encounter Location Date Provider Diagnosis [place] [address] [place] [address] 07/28/2024 Irina Vyas Type 2 diabetes mellitus with diabetic polyneuropathy E11.42 ; Tinea unguium B35.1 and Xerosis of skin L85.[address] [facility] [address] 06/17/2024 Rosemary Brito [facility] [address] [address] 07/29/2024 Irina Vyas Assessments Encounter Date Diagnosis (ICD Code) Assessment Notes Treatment Notes Treatment Clinical Notes Section Notes 07/28/2024 Type 2 diabetes mellitus with diabetic polyneuropathy (ICD-10 - E11.42) Patient Educated with: DIABETIC FOOT CARE INSTRUCTIONS. pdf (DIABETIC FOOT CARE INSTRUCTIONS. pdf) 07/28/2024 Tinea unguium (ICD-10 - B35.1) 07/28/2024 Xerosis of skin (ICD-10 - L85.3) Plan Of Treatment Pending Test Test Name Order Date 61377-NRLRKQL NAIL, 6 OR MORE 07/28/2024 35221-MHYZ SKIN LESIONS, OVER 4 07/28/20 24 Next Appt Details Provider Name:Irina Vyas , 10/15/2024 01:45:00 PM, [facility] [place] [address], [address], Insurance Providers Payer Name Payer Address Payer Phone Subscriber Number Group Number Insured Name Patient Relationship to Insured Coverage Start Date Coverage End Date Medicare National [employer] [address] [place] [address] Puma Denney Self - patient is the insured [facility] [address] [place] [address] [id number] Puma Denney Self - patient is the insured Medical (General) History Medical History History ICD Code Diabetic
--- OUTSIDE RECORDS SUMMARY | 2024-10-08 14:53 | XMS_ITS ---
Author Organization [facility] Address [address] [place] [address] Care Team Providers Care Tapper Bit Name Role Phone Vikram Del Rosario MD Primary Care Provider Irina Cunningham Unavailable [phone] REASON FOR VISIT r/s 10/27/24 apt Encounters Encounter Location Date Provider Diagnosis [facility] [address] [place] [address] 07/29/2024 Irina Vyas Plan Of Treatment Next Appt Details Provider Name:Irina Pizarro Asael , 10/15/2024 01:45:00 PM, [address] [place] [address], [place], [address], Progress Notes * DENNEYPumaDOB: [birth year] (74 yo M)Acc No.[id number]:07/29/2024 Patient:?Gee DENNEYcom :1950???Age:74 Y???Sex:Male Address:[place] [address] * true * Date:? Generated for Printi sawyer/Evgeny/eTransmitting on:?10/08/2024 02:53 PM EST
--- OUTSIDE RECORDS SUMMARY | 2024-10-08 14:54 | XMS_ITS ---
[facility] Address [address] [facility] [place] [address] Care Team Providers Care Load Builder Name Role Phone Miguel Ángel SY, Vikram Primary Care Provider Irina Cunningham Unavailable [phone] Allergies No Known Allergies REASON FOR VISIT At Risk Footcare, Skin problem(s) Medications Medication SIG (Take, Route, Frequency, Duration) Notes Start Date End Date Status Omeprazole 40 MG 1 capsule 1/2 to 1 h our before morning meal Orally Once a day Active hydroCHLOROthiazide 25 MG 1 tablet in th e morning Orally Once a day Active Losartan Potassium 50 MG 1 tablet Orally Once a day Active Warfarin Sodium 2.5 MG 1 tablet Orally O nce a day Active Metoprolol Succinate 25 MG 1 capsule Ora lly Once a day Active Ammonium Lactate 12 % 1 application Exte rnally to affected areas of dry skin to feet except for between the toes Twice a day for 30 days Active metFORMIN HCl 1000 MG 1 tablet with a me al Orally Once a day Active glipiZIDE 10 MG 1 tablet 30 minutes before breakfast Orally Once a day Active Nitroglycerin 0.4 MG as directed Sublingual Active Social History Tobacco Use: Social History [...] Polyneuropathy due to type 2 diabetes mellitus (784341280) Type 2 diabetes mellitus with diabetic polyneuropathy (E11.42) Active confirmed Vital Signs Height 5 ft 11 in in 07/28/2024 Weight 214 lbs 07/28/2024 BMI 29.84 kg/m2 07/28/2024 Procedures Procedure Date Ordered Date Performed Result Body Sit e 32961-ZVTFZDN NAIL, 6 OR MORE 07/28/2024 N/A 15811-DUVC SKIN LESIONS, OVER 4 07/28/2024 N/A Encounters Encounter Location Date Provider Diagnosis [facility] [address] 07/28/2024 Irina Vyas Type 2 diabetes uyen itus with diabetic polyneuropathy E11.42 ; Tinea unguium B35.1 and Xerosis of skin L85.3 Assessments Encounter Date Diagnosis (ICD Code) Assessment Notes Treatment Notes Treatment Clinical Notes Section Notes 07/28/2024 Type 2 diabetes mellitus with diabetic polyneuropathy (ICD-10 - E11.42) Patient Educated with: DIABETIC FOOT CARE INSTRUCTIONS. pdf (DIABETIC FOOT CARE INSTRUCTIONS. pdf) 07/28/2024 Tinea unguium (ICD-10 - B35.1) 07/28/2024 Xerosis of skin (ICD-10 - L85.3) Plan Of Treatment Medication Medication Name Sig Start Date Stop Date Notes Ammonium Lactate 12 % 1 application Exte rnally to affected areas of dry skin to feet except for between the toes Twice a day for 30 days Treatment Notes Assessment Notes Type 2 diabetes mellitus wit h diabetic polyneuropathy Patient Educated with: DIABETIC FOOT CARE INSTRUCTIONS.pdf (DIABETIC FOOT CARE INSTRUCTIONS.pdf) Pending Test Test Name Order Date [id number]-QMHZXMS NAIL, 6 OR MORE 07/28/2024 12904-VYGW SKIN LESIONS, OVER 4 07/28/20 24 Next Appt Details Follow Up: 3 Months, Reason: Provider Name:Irina Vyas , 10/15/2024 01:45:00 PM, [address] [facility], [place], [address], Procedure Notes * Category Sub-Category Detail Notes Debride Nail 6-10 Nail debridement Performance o f this nail treatment by a nonprofessional would put this patients foot and overall health at risk. Therefore, debridement to affected nail(s), as described in exam, was performed extensively to reduce/remove overall nail length, girth, thickness, subungual debris, and necrotic tissue, by manual and/or electrical means through the use of a nail nipper and/or dremel-type finish grinder, to a more viable healthy nail plate or bed tissue 6-10. Silver nitrate used for any petechial bleeding as necessary. Definitive antifungal treatment options have been reviewed and discussed with the patient. The patient chooses, no pharmaceutical tx - 11321 Keratoma Treatment Parring or Cutting o f Benign Hyperkeratotic Lesion(s) ..., (-57) More than 4 Lesions - The Benign hyperkeratotic lesions, as described in exam, were pared, and/or cut utilizing a sterile 15 blade, tissue nippers, and/or dremel - 34915 Progress Notes * Gee DENNEYnarinderDOB: 9 (74 yo M)Acc No.[id number]:07/28/2024 Progress Notes Patient:?Puma DENNEY Provider:?Irina Vyas DPM :1950???Age:74 Y???Sex:Male Mike e:07/28/2024 [facility] Pcp:Vikram Del Rosario MD Subjective: * Chief Complaints: * ???At Risk FootcareSkin prob kezia(s) * HPI: ???At Risk footcare:?Pt States Last PCP Visit:?Date?06/30/2024 ???Skin problems:?Nature:?dryness , scaling.?Location:?B/L .?Duration:?several days.?Course:?worse.? * ROS:?General/Constitutional:?Nausea?denies.?Vomiting?denies.?Hunger Thirst?denies.?Loss appetite?denies.?Chills?denies.?Fatigue?denies.?Fever?denies.?Night Sweats?denies.?Unexplained weight loss?denies.?Unexplained weight gain?denies.?HEENTM:?Dentures?denies.?Dizziness?denies.?Glasses/contacts?denies.?Retinopathy?den ies.?Blurred/double vision?denies.?TMJ?denies.?Discharge/drainage?denies.?Implants?denies.?Sore throat?denies.?Dental implants?denies.?Hard of hearing ?denies.?Difficulty chewing/swallowing/speaking?denies.?Nose bleeds?denies.?Sore mouth?denies.?Respiratory:?On O xygen?denies.?Pneumonia/pleurisy?denies.?Bronchitis?denies.?Emphysema?denies.?Co ughing?denies.?Cough blood?denies.?Shortness of breath?denies.?Wheezing?denies.?Cardiovascular:?Pacemaker?denies.?MVP?denies.?WPW?denies.?CHF?denies.?Heart attack?denies.?Septal defect?denies.?Rapid beat?denies.?Chest pain ?denies.?Atrial Fib.?denies.?Murmur/Palpitations?denies.?Gastrointestinal:?Hemorrhoids?denies.?Stomach/Abdominal pain?denies.?Dark blood stool?denies.?Irritable bowel ?denies.?Constipation?denies.?Diarrhea?denies.?Hematology:?Swelling?denies.?Clots?denies.?Varicose Veins?denies.?Bruising?denies.?Bleeding problem?denies.?Genitourinary:?Blood urine?denies.?Frequent/Painfu/urination/bladder control?denies.?Kidney stones?denies.?Infection (UTI)?denies.?Nephropathy?denies.?sex trans dis (STD)?denies.?Prostate?denies.?Musculoskeletal:?Hammertoes?denies.?Bunions?denies.?Back Pain?denies.?Muscle Cramps/ Resting?denies.?Muscle cramps / walking?denies.?Generalized aches and pains?denies.?Weakness?denies.?Integ.:?Nieto?denies.?Scars?denies.?Corns/calluses?, admits.?Ingrown nails?denies.?Painful nails?denies.?Open Sores?denies.?Rashes?denies.?Neurologic:?Difficulty sleeping?denies.?Brain disorder?denies.?Numbness?denies.?Balance t rouble?denies.?Confusion?denies.?Fainting/blackouts?denies.?Tingling?denies.?Medhat mors?denies.? * Medical History:? * Surgical History:?Denies Pas t Surgical History * Hospitalization/Major Diagno stic Procedure:?Denies Past Hospitalization * Family History:?No Family Hi story documented..? * Social History:?Tobacco Use:?Tobacco use other than smoking?Are you an other tobacco user??No ?Tobacco Control (Standard)?Tobacco use:?Nonsmoker ?Additional Findings: Tobacco non-user?Current nonsmoker ???Drugs/Alcohol:?Drugs?Have you used drugs other than those for medical reasons in the past 12 months??No ???Miscellaneous:?Caffeine: yes. ???Drug/Alcohol:?AUDIT-C (Standard)?Did you have a drink containing alcohol in the past year??Yes ?How often did you have six or more drinks on one occasion in the past year??Less than monthly (1 point) ?How many drinks did you have on a typical day when you were drinking in the past year??1 or 2 drinks (0 point) ?How often did you have a drink containing alcohol in the past year??Monthly or less (1 point) ?Points?2 ?Interpretation?Negative * Medications:?TakingNitroglyc audrey 0.4 MG Tablet Sublingual as directed Sublingual glipiZIDE 10 MG Tablet 1 tablet 30 minutes before breakfast Orally Once a day metFORMIN HCl 1000 MG Tablet 1 tablet with a meal Orally Once a day Omeprazole 40 MG Capsule Delayed Release 1 capsule 1/2 to 1 hour before morning meal Orally Once a day Losartan Potassium 50 MG Tablet 1 tablet Orally Once a day hydroCHLOROthiazide 25 MG Tablet 1 tablet in the morning Orally Once a day Metoprolol Succinate 25 MG Capsule ER 24 Hour Sprinkle 1 capsule Orally Once a day Warfarin Sodium 2.5 MG Tablet 1 tablet Orally Once a day Medication List reviewed and reconciled with the patientTaking Nitroglycerin 0.4 MG Tablet Sublingual as directed Sublingual Taking glipiZIDE 10 MG Tablet 1 tablet 30 minutes before breakfast Orally Once a day Taking metFORMIN HCl 1000 MG Tablet 1 tablet with a meal Orally Once a day Taking Omeprazole 40 MG Capsule Delayed Release 1 capsule 1/2 to 1 hour before morning meal Orally Once a day Taking Losartan Potassium 50 MG Tablet 1 tablet Orally Once a day Taking hydroCHLOROthiazide 25 MG Tablet 1 tablet in the morning Orally Once a day Taking Metoprolol Succinate 25 MG Capsule ER 24 Hour Sprinkle 1 capsule Orally Once a day Taking Warfarin Sodium 2.5 MG Tablet 1 tablet Orally Once a day Medication List reviewed and reconciled with the patient * Allergies:?N.K.D.A.yes[Aller gies Verified] Objective: * Vitals:?Ht: 5 ft 11 in, Wt:2 14, BMI:29.84, Shoe size: 12, BS: 135, Ht-cm: 180.34 cm, Wt-k.07 kg. * Examination: ???Ophthalmology Referral: ?DIABETES EYE EXAM?General Examination: ?GENERAL APPEARANCE:?Reveals a pleasant, alert, well nourished, well- developed, well hydrated individual, who demonstrates proper attention to hygiene/body habitus, and is in no acute distress, Pt serves as own historian for office visit today.?ORIENTED:?person, place, and time.?Neurological: ?SENSORY:? Neurological exam demonstrates, reduced light touch sensation, reduced sharp/dull pin prick discrimination , B/L, 5.07 monofilament test performed at plantar aspects of 5 varied sites per foot shows sensation, reduced , B/L.?TINEL'S COMPRESSION:?Negative tarsal tunnel, enid pedis, and medial calcaneal nerves.?Nails: ?NAILS are:?Elongated, overgrown, dystrophic, lytic, greater than 3mm thick, discolored and friable with crumbly malodorous subungual debris, with dull to no pain on palpation due to neuropathy, 1-5 B/L.?Dermatologic: ?SKIN FINDINGS:?Skin exam reveals Keratotic lesion(s) located at IPJ,TA,T5,Dorsal, T4,Plantar Heel(s), B/L, , Skin shows sign(s) of, dryness, scaling, in a stocking fashion, no fissure(s) present, B/L.?Vascular: ?DP PULSES(B):?, 1/4, B/L.?PT PULSES(B):?1/4, B/L.?CAPILLARY FILL TIME:?immediate, all digits, B/L.?TROPHIC CONDITION-TEXTURE/ELASTICITY/TURGOR/HAIR GROWTH(B):?fragile, thin, shiny skin, B/L, with sparse to absent hair growth.?TEMPERTURE GRADIENT(C):??decreased, cool to cool, proximal to distal, B/L.?PIGMENTATION:?hemosiderin deposition B/L.?EDEMA(C):?2/4, non-pitting, without aching pain, B/L, Ankle(s), Leg(s).?ELEV. PALOR:?absent.?CLAUDICATION(C):?denies.?BURNING(C):?absent, B/L.?Orthopedic: ?MUSCLE STRENGTH:?5/5 all groups in a symmetrical fashion, B/L.?DIGITAL DEFORMITIES:?Digital contracture, PIPJ, 2-5 B/L, incompl-reducible with WB, or to push-up test, no over, nor underlapping.? Assessment: * Assessment: 1.?Type 2 diabetes mellitus with diabetic polyneuropathy - E11.42 (Primary)???2.?Tinea unguium - B35.1???3.?Xerosis of skin - L85.3???Specify :Acute problem, Uncomplicated (3),Rx Management (4)??? Plan: * Treatment: 2.?Tinea unguium?Procedure: 01966-[id number] NAIL, 6 OR MORE 3.?Xerosis of skin? Start Ammonium Lactate Cream, 12 %, 1 application, Externally to affected areas of dry skin to feet except for between the toes, Twice a day, 30 days, 140, Refills 2.?? * Procedures:?Debride Nail 6-10:?Nail debridement?Performance of this nail treatment by a nonprofessional would put this patients foot and overall health at risk. Therefore, debridement to affected nail(s), as described in exam, was performed extensively to reduce/remove overall nail length, girth, thickness, subungual debris, and necrotic tissue, by manual and/or electrical means through the use of a nail nipper and/or dremel-type finish grinder, to a more viable healthy nail plate or bed tissue 6-10. Silver nitrate used for any petechial bleeding as necessary. Definitive antifungal treatment options have been reviewed and discussed with the patient. The patient chooses, no pharmaceutical tx - 97804.?Keratoma Treatment:?Parring or Cutting of Benign Hyperkeratotic Lesion(s)?..., (-57) More than 4 Lesions - The Benign hyperkeratotic lesions, as described in exam, were pared, and/or cut utilizing a sterile 15 blade, tissue nippers, and/or dremel - 68574.? * Procedure Codes:?83047 DEBRI DE NAIL, 6 OR MORE, Modifiers: XS 00699 TRIM SKIN LESIONS, OVER 4, Modifiers: XS * Preventive Medicine:? ??Counseling:?Discussion:?-03: Office or other outpatient visit for the evaluation and management of a new patient, which required a medically appropriate history and/or examination and LOW level of DECISION MAKING for: 1 STABLE ACUTE UNCOMPLICATED PROBLEM, 2 OR MORE MINOR PROBLEMS, OR 1 STABLE CHRONIC PROBLEM, THAT POSE(S) A LOW RISK FOR MORBIDITY/MORTALITY. The visit on the day of the encounter encompassed interpreting the data and educating the patient as to the nature of their condition, treatment options available according to their individual PMH, meds, allergies, and overall health/living conditions, as well as any potential risks or complications that may occur from a failure to adhere to, and participate in, the recommended course of therapy. The discussion included a complete verbal, and/or written explanation of the examination results, any x-rays taken, the proposed diagnosis, and outline of the treatment plan. A schedule for future care needs was also explained. The patient verbalized an understanding of the instructions at this time and agreed to be an active participant in their treatment. If the patient should think of any questions or concerns after the visit, I have encouraged the patient to call the office.?Diabetic Footcare:?The patient was advised against future self nail/callus care due to inherent risks for infection, loss of limb/life given diabetes, neuropathy.?Xerosis:?The patient was counseled on the diagnosis, potential etiologies, and treatment options for their skin condition. We discussed the risks and benefits of each option from performing no treatment, to utilizing OTC topical skin creams/ointments, to utilizing prescription topical creams/ointments, to utilizing customized compounded topical medications and use of nocturnal occlusion with any/all previously detailed therapies. We discussed the advantages and disadvantages of each possible treatment and importance for adherence to all the recommended therapies for optimum success and avoid potential complications such as open sore/infection/possible hospitalization. We discussed the potential effectiveness of each topical preparation as well as each ones possible side effects and/or patient medication interactions. Patient questions re: use, dosage, successful outcomes, and application consistency were reviewed and the patient verbalized that all answers were clearly understood. The patient has decided to apply Rx skin creams to their feet save the interspaces while paying special attention to the heels. Such was sent to their pharmacy at the time of visit.? ??Screening/Special Tests:?Fall Risk?Assessment:?Performed ?Screening:?No falls in the past year ?FALLS: Screening for Future Fall Risk?Have you had two or more falls in the past year??No ?Have you had any falls with injury in the past year??No * Follow Up:?3 Months * Images: * Sign off status: Completed true * Provider:?Irina Vyas DPM Date:?2023 Generated for Laurie jacques/Evgeny/Napoleon on:?10/08/2024 02:53 PM EST History and Physical Notes * HPI (History of Present Illness) Category Sub-Category Detail Notes Category Not es Skin problems Nature: dryness , scaling Location: B/L Duration: several days Course: worse At Risk footcare Pt States Last PCP Visit: Date: 4 Examination Category Sub-Category Detail Notes Category Not es Neurological SENSORY: Neurological exa m demonstrates, reduced light touch sensation, reduced sharp/dull pin prick discrimination , B/L, 5.07 monofilament test performed at plantar aspects of 5 varied sites per foot shows sensation, reduced , B/L TINEL'S COMPRESSION: Negative tarsal isaías ambreen, enid pedis, and medial calcaneal nerves Dermatologic SKIN FINDINGS: Skin exam reveal s Keratotic lesion(s) located at IPJ,TA,T5,Dorsal, T4,Plantar Heel(s), B/L, , Skin shows sign(s) of, dryness, scaling, in a stocking fashion, no fissure(s) present, B/L Orthopedic DIGITAL DEFORMITIES: Digital con tracture, PIPJ, 2-5 B/L, incompl-reducible with WB, or to push-up test, no over, nor underlapping MUSCLE STRENGTH: 5/5 all groups in a symmetrical fashion, B/L General Examination GENERAL APPEARANCE: Reveals a pleasant, alert, well nourished, well-developed, well hydrated individual, who demonstrates proper attention to hygiene/body habitus, and is in no acute distress, Pt serves as own historian for office visit today ORIENTED: person, place, and t susan Ophthalmology Referral DIABETES EYE EXAM Procedure Perform ed:: Yes ?Date of Exam Performed: 09/15/2023 Findings of Diabetic Eye Exam:: no retin opathy Vascular DP PULSES (B): , 1/4, B/L PT PULSES (B): 1/4, B/L CAPILLARY FILL TIME: immediate, all digi ts, B/L TEMPERTURE GRADIENT (C): decreased, cool to cool, proximal to distal, B/L TROPHIC CONDITION-TEXTURE/ELASTICITY/TURGOR/HAIR GROWTH (B): fragile, thin, shiny skin, B/L, with spa rse to absent hair growth EDEMA (C): 2/4, non-pitting, wi thout aching pain, B/L, Ankle(s), Leg(s) ELEV. PALOR: absent CLAUDICATION (C): denies PIGMENTATION: hemosiderin depositi on B/L BURNING (C): absent, B/L Nails NAILS are: Elongated, overg rown, dystrophic, lytic, greater than 3mm thick, discolored and friable with crumbly malodorous subungual debris, with dull to no pain on palpation due to neuropathy, 1-5 B/L
== END 2024-10-08 13:36 | disposition home or self-care (01) ==
LOC: HO.HUSH 13:04
PROVIDERS: PCP Internal Medicine; Visit Provider Urology
DX: R97.20 Elevated prostate specific antigen [PSA] (principal); N40.1 Benign prostatic hyperplasia with lower urinary tract symptoms
CPT/HCPCS: 98016

== ENCOUNTER 2025-04-29 14:05 | Outpatient (AMB) | payer MEDICARE, SELFPAY ==
--- OUTSIDE RECORDS SUMMARY | 2025-01-14 09:45 | XMS_ITS ---
Author Organization [facility] Address [address] [place] [address] Care Team Providers Care Seating Upholsterer Name Role Phone Miguel Ángel SY, Vikram Primary Care Provider Irina Cunningham [phone] REASON FOR VISIT seen sooner Encounters Encounter Location Date Provider Diagnosis [address] [address] 01/14/2025 Irina Vyas Plan Of Treatment Next Appt Details Provider Name:Irina Vyas , 07/13/2025 02:15:00 PM, [address] [place] [address], [place], [address], Progress Notes * Gee DENNEYnarinderDOB: 9 (75 yo M)Acc No.[id number]:01/14/2025 Progress Note Patient: Puma CAIN Provider: Shawnee Vyas DPM :1950 A ge:74 Y S ex:Male Date:01/14/2025 Address:[address] [place], [place]-[address] Pcp:Vikram Del Rosario MD Subjective: * Chief Complaints: * 1 . Seen sooner. * Medical History: Objective: * Vitals: Assessment: Plan: * Treatment: * Images: * The named appointment provid er may or may not be the originator of this progress note, and it is not deemed complete until electronically signed by the appointment provider. Sign off status: Pending * Provider: Shawnee Vyas DPM Date: 0 01/14/2025 Generated for Laurie jacques/Evgeny/Napoleon on: 0 04/29/2025 02:07 PM EDT
--- NOTE | 2025-04-29 14:03 | A.OFFVIS_ITS ---
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 He is a patient of Dr. Del Rosario. He is seen for the following urologic conditions - lower urinary tract symptoms Six-month follow-up Remains on finasteride and terazosin. - PVR 90 cc PSA - decreased to 3.7 Effective urinary parameters Good stream, effective bladder emptying Minimal bother 12 month follow-up Lower urinary tract symptoms Longstanding treatment Current medications include finasteride and terazosin PSA 07/05 6.4, 05/07 3.6, 04/07 4.9 25%, 10/09 4.7, 04/08 3.7 Prior prostate biopsy 2017 [facility] Investigations - 11/03 MRI reported as 2 lesions PI-RADS 4 each less than 10 mm. Total size 160 cc Will continue with current medications and repeat PSA on interval basis Given prostate size PSA is within an acceptable range [facility] Medical History (Updated 10/08/23 @ 14:25 by Wesley Viramontes MD) Benign prostatic hyperplasia with lower urinary tract symptoms Elevated PSA Frequent urination Review of Systems Const Denies chills and Denies fever(s) Card Reports no additional complaints and Denies syncope Resp Denies cough GI Denies abdominal pain and Denies heartburn Reports as per HPI and Denies change in libido Neuro Denies syncope Psych Denies change in libido Endo Denies change in libido Physical Exam Const General: cooperative, healthy appearing, comfortable and no acute distress Orientation/consciousness: patient oriented x3 HEENT Face and sinus: Yes normal facial exam Mouth: moist mucous membranes Neck Neck: Yes normal visual inspection, Yes full ROM and Yes trachea midline Chest Chest palpation & inspection: normal inspection of the chest Resp Effort & Inspection: normal respiratory effort, able to speak in complete sentences and no respiratory distress GI Inspection: Yes normal to inspection Back/Spine/Pelvis Cervical Spine: normal cervical lordosis Thoracic/Lumbar Spine: thoracic and lumbar spine normal to inspection Skin General skin exam: no rashes or lesions noted Neuro General: patient oriented x3, gait normal, tone normal and moves all extremities Extrem General: Yes normal to inspection and Yes capillary refill normal Office Procedures Post Void Residual Post Residual Void Post Void Residual (PVR): 91 [id number] Void Residual by ultrasound Results AMB Urinalysis, Automated UA Leukoctes 15 Debbie/uL Last Edit by TOREY Begum on 04/29/25 14:26 UA Nitrite Negative Last Edit by TOREY Begum on 04/29/25 14:26 UA Urobilinogen 0.2 mg/dL Last Edit by TOREY Begum on 04/29/25 14:2 6 UA Protein 15 mg/dL Last Edit by TOREY Begum on 04/29/25 14:26 UA pH 5.5 Last Edit by TOREY Begum on 04/29/25 14:26 UA Blood 0 Roberto/uL Last Edit by TOREY Begum on 04/29/25 14:26 UA Specific [place] 1.025 Last Edit by TOREY Begum on 04/29/25 14: 26 UA Ketone Positive Last Edit by TOREY Begum on 04/29/25 14:26 UA Bilirubin 1 mg/dL Last Edit by TOREY Begum on 04/29/25 14:26 UA Glucose 0 mg/dL Last Edit by TOREY Begum on 04/29/25 14:26 Assessment & Plan Assessment & Plan (1) Benign prostatic hyperplasia with lower urinary tract symptoms: Code(s): N40.1 - Benign prostatic hyperplasia with lower urinary tract symptoms Category: Medical (2) Elevated PSA: Code(s): R97.20 - Elevated prostate specific antigen [PSA] Category: Medical Plan Twelve month follow-up PSA office Orders: Orders AMB Post Void Residual by ultrasound Today N40.1 - Benign prostatic hyperplasia with lower urinary tract symptoms Prostate Specific Antigen 12 Months N40.1 - Benign prostatic hyperplasia with lower urinary tract symptoms AMB Urinalysis Automated Today Z13.9 - Encounter for screening, unspecified Medications: Refilled terazosin 5 mg PO BEDTIME 90 caps 3RF 90 days N40.1 - Benign prostatic hyperplasia with lower urinary tract symptoms finasteride 5 mg PO DAILY 90 tabs 3RF 90 days N40.1 - Benign prostatic hyperplasia with lower urinary tract symptoms Patient Instructions: This note is constructed using voice recognition software. While every effort has been made to ensure accuracy channel process plant operator errors may have been included. Imaging studies, laboratory and physical exam results were discussed and reviewed in detail. No major barriers to patient understanding were identified. An opportunity to ask questions regarding the treatment plan was provided. All questions were answered. The patient expressed understanding and agreement with the above treatment plan. The patient is aware they should contact our office by phone for worsening of their current condition or the appearance of new urologic symptoms. Compliance is encouraged with any medications and followup testing that is ordered. It is a privilege to participate in the urologic care of your patient. If you have any questions or concerns regarding treatment for the above conditions, or other urologic issues, please do not hesitate to contact me. The office telephone contact is [phone]. Sincerely, Dr Wesley Viramontes MD, JUD[facility] - Urology Compassionate Specialist Care for the Genitourinary System Coding Level of Care Code Est Pt Level 3 (62046) Complex EM visit Add On G2211 Diagnoses Benign prostatic hyperplasia with lower urinary tract symptoms N40.1 Elevated PSA R97.20 CPT Codes Post Residual Void - PVR CPT Code: 75555-Xppg Void Residual by ultrasound ([id number])
--- OUTSIDE RECORDS SUMMARY | 2025-04-29 14:07 | XMS_ITS ---
Author Name [facility] Organization Unknown History of Medication Use Medication Directions Dispensed Refills Start Date End Date Stat [id number] Meter USE TO TEST DAILY 04/15/2023 active glipizide ER 10 mg tablet, extended release 24 hr TAKE 1 TABLET BY MOUTH TWICE A DAY active latanoprost 0.005 % eye drops active losartan 25 mg tablet TAKE 1 TABLET BY MOUTH EVERY DAY active metoprolol tartrate 25 mg tablet active nitroglycerin 0.4 mg sublingual tablet PLEASE SEE ATTACHED FOR DETAILED DIRECTIONS active Trulicity 0.75 mg/0.5 mL subcutaneous pen [...] rotator cuff tear active 2023-03-04 ProblemAct ENS_AONECT Encounters Encounter Type Encounter Reason Primary Diagnosis Location Date Ambulatory [facility] 06/20/2023 Ambulatory [facility] 02/20/2023 Ambulatory [facility] 02/20/2023 Ambulatory [facility] 02/13/2023 Ambulatory [facility] 01/20/2023 Ambulatory [facility] 01/20/2023 Ambulatory [facility] 01/20/2023 Ambulatory [facility] 01/20/2023 Ambulatory [facility] 01/13/2023
== END 2025-04-29 14:30 | disposition home or self-care (01) ==
LOC: HO.HUSH 14:05
PROVIDERS: PCP Internal Medicine; Visit Provider Urology
DX: N40.1 Benign prostatic hyperplasia with lower urinary tract symptoms (principal); R97.20 Elevated prostate specific antigen [PSA]; Z13.9 Encounter for screening, unspecified
CPT/HCPCS: 99213; G2211

== ENCOUNTER → 2025-04-29 14:05 | Outpatient (BNVA) | payer MEDICARE, SELFPAY | PROVIDERS: PCP Internal Medicine; Visit Provider Urology | DX: N40.1 Benign prostatic hyperplasia with lower urinary tract symptoms (principal); R97.20 Elevated prostate specific antigen [PSA] | CPT/HCPCS: 51798; 81003; 99212 ==